=== PATIENT | female | born 1945 | race Caucasian/White ===

== ENCOUNTER → 2017-12-04 | Outpatient (CLI) | payer MEDICARE ==
[~2017-12-04] MED LIST: DORZ10DR7 EACHEYE; KETO5DRO77 EACHEYE; LEVO50TA5 PO; ONDA4TAB7 PO; OXYC-306 PO; PRED1DRO LEFTEYE; ROSU20TA PO
[2017-12-04 15:36] LABS: BASOPHILS # (AUTO) 0.04 x10^3/uL (0-0.1); BASOPHILS % (AUTO) 1 % (0-1); EOSINOPHILS # (AUTO) 0.09 x10^3/uL (0-0.4); EOSINOPHILS % (AUTO) 2 % (1-7); LYMPHOCYTES # (AUTO) 1.74 x10^3/uL (1-3.4); LYMPHOCYTES % (AUTO) 31 % (22-44); MD NO; MEAN CORPUSCULAR HEMOGLOBIN 30.3 pg (27.0-34.8); MEAN CORPUSCULAR HGB CONC 33.6 g/dL (32.4-35.8); MEAN CORPUSCULAR VOLUME 90.2 fL (80-100); MEAN PLATELET VOLUME 7.6 fL (7.4-10.4); MONOCYTES # (AUTO) 0.43 x10^3/uL (0.2-0.8); MONOCYTES % (AUTO) 8 % (2-9); NEUTROPHILS # (AUTO) 3.24 x10^3/uL (1.8-6.8); NEUTROPHILS % (AUTO) 58 % (42-75); PLATELET COUNT 291 x10^3/uL (130-400); RED CELL DISTRIBUTION WIDTH 14.4 % (9.6-15.2)
[2017-12-04 15:44] LABS: INTERNATIONAL NORMALIZED RATIO 0.99 (0.93-1.1); PROTHROMBIN TIME 10.2 Seconds (9.6-11.5)
[2017-12-04 15:49] LABS: ALANINE AMINOTRANSFERASE 27 U/L (12-78); ALBUMIN 4.2 g/dL (3.4-5.0); ANION GAP 6 mmol/L (5-15); CALCIUM 9.3 mg/dL (8.5-10.1); CHLORIDE 108 mmol/L (98-107)
[2017-12-04 15:51] LABS: CREATININE 0.56 mg/dL (0.55-1.02)
[2017-12-04 15:52] LABS: ALKALINE PHOSPHATASE 79 U/L (45-117); BILIRUBIN,TOTAL 0.7 mg/dL (0.2-1.0)
== END | disposition home or self-care (01) ==
LOC: STAR 14:11
PROVIDERS: ATTEND Specialist
DX: Z01.818 Encounter for other preprocedural examination (principal); Z15.01 Genetic susceptibility to malignant neoplasm of breast
CPT/HCPCS: 36415; 71046; 80053; 85025; 85610; 85730; 93005

== ENCOUNTER 2017-12-09 10:53 | Observation (INO) | payer MEDICARE ==
[~2017-12-09] VITALS: Ht 157.5 cm; Wt 87.0 kg
[~2017-12-09 10:53] MED LIST changes: +BUPIVACAINE 0.25% ONE; -ONDA4TAB7 PO; -OXYC-306 PO
[2017-12-09] MEDS ORDERED: LACTATED RINGERS 1,000 ML IV SCH (11:23)
[2017-12-09] MEDS ORDERED: OxyconTIN ER 10 MG TAB.ER PO STA (13:29)
[2017-12-09] MEDS ORDERED: ACETAMINOPHEN 500 MG TABLET PO STA (13:29)
[2017-12-09] MEDS ORDERED: GABAPENTIN 300 MG CAPSULE PO STA (13:29)
[2017-12-09] MEDS ORDERED: ONDANSETRON ODT 8 MG PO STA (13:29)
[2017-12-09] MEDS ORDERED: MIDAZOLAM 1 MG/ML, 2ML ONE (14:34)
[2017-12-09] MEDS ORDERED: FENTANYL PF 250 MCG/5ML ONE (14:34)
[2017-12-09] MEDS ORDERED: ROCURONIUM 10MG/ML,5ML ONE (14:35)
[2017-12-09] MEDS ORDERED: PROPOFOL 10 MG/ML, 20ML ONE (14:36)
[2017-12-09] MEDS ORDERED: LIDOCAINE-MPF 2% ,5ML ONE (14:36)
[2017-12-09] MEDS ORDERED: CEFOTETAN 2 GM ONE (15:27)
[2017-12-09] MEDS ORDERED: PHENYLEPHRINE 10 MG/ML ONE (15:27)
[2017-12-09] MEDS ORDERED: DEXAMETHASONE 4 MG/ML, 1ML ONE (16:30)
[2017-12-09] MEDS ORDERED: METOCLOPRAMIDE 5 MG/ML, 2ML ONE (16:31)
[2017-12-09] MEDS ORDERED: HYDROmorphone 1 MG/ML, 1ML IV PRN (17:00)
[2017-12-09] MEDS ORDERED: PROMETHAZINE 25 MG/ML, 1ML IV PRN (17:00)
[2017-12-09] MEDS ORDERED: HALOPERIDOL 5 MG/ML IV PRN (17:00)
[2017-12-09] MEDS ORDERED: hydrALAzine 20 MG/ML, 1ML IV PRN (17:00)
[2017-12-09] MEDS ORDERED: FENTANYL PF 100 MCG/2ML IV PRN (17:00)
[2017-12-09] MEDS ORDERED: LABETALOL 5MG/ML, 20ML IV PRN (17:00)
[2017-12-09] MEDS ORDERED: OXYcodone 5 MG/5 ML ORAL.SOL UDC PO PRN (17:00)
[2017-12-09] MEDS ORDERED: MEPERIDINE/PF 25MG/0.5ML IVPush PRN (17:00)
[2017-12-09] MEDS ORDERED: FENTANYL PF 100 MCG/2ML ONE (17:37)
[2017-12-09] MEDS ORDERED: OXYcodone 5 MG/5 ML ORAL.SOL UDC ONE (17:37)
[2017-12-09] MEDS ORDERED: KETOROLAC 30 MG/1 ML IV PRN ×2 (19:00→20:00)
[2017-12-09] MEDS ORDERED: MORPHINE SULFATE 4 MG/ML, 1ML IV PRN (19:00)
[2017-12-09] MEDS ORDERED: ONDANSETRON 2MG/ML, 2ML IV PRN (19:00)
[2017-12-09] MEDS ORDERED: ONDANSETRON 4 MG TABLET PO PRN (19:00)
[2017-12-09] MEDS ORDERED: OXYcodone/APAP 7.5/325MG TABLET PO PRN (19:00)
[2017-12-09] MEDS: METOCLOPRAMIDE 5 MG/ML, 2ML IVPush SCH (19:36)
[2017-12-09] MEDS ORDERED: OXYcodone/APAP 5/325MG TABLET PO PRN (20:00)
[2017-12-09 20:15] VITALS: BP 148/83
[2017-12-10 00:14] VITALS: BP 109/70
[2017-12-10] MEDS: METOCLOPRAMIDE 5 MG/ML, 2ML IVPush SCH ×3 (02:04→13:30)
[2017-12-10 04:22] VITALS: BP 97/59
[2017-12-10] MEDS ORDERED: LEVOTHYROXINE 25 MCG TABLET ONE (05:35)
[2017-12-10] MEDS ORDERED: LEVOTHYROXINE 50 MCG TABLET PO SCH (06:00)
[2017-12-10 07:26] VITALS: BP 104/65
[2017-12-10 12:50] VITALS: BP 104/63
[2017-12-10] MEDS ORDERED: OXYC-306 PO (14:03)
[2017-12-10] MEDS ORDERED: ONDA4TAB7 PO ×2 (14:03)
== END 2017-12-10 15:00 | disposition home or self-care (01) ==
LOC: OUT 10:53 → 4NOR 18:22 → OUT 19:52 → 4NOR 19:53
PROVIDERS: ADMIT Specialist; ATTEND Specialist
DX: D25.1 Intramural leiomyoma of uterus (principal); N85.8 Other specified noninflammatory disorders of uterus; N83.8 Other noninflammatory disorders of ovary, fallopian tube and broad ligament; Z85.3 Personal history of malignant neoplasm of breast
CPT/HCPCS: 36415; 58552; 86850; 86900; 86923; 88307; 96374; 96375; 96376; G0378; J1100; J2250; J2370; J2405; J2704; J2765; J3010; J3490; J7120; Q0162; S0074